=== PATIENT | female | born 1980 | race Caucasian/White ===

== ENCOUNTER 2025-05-25 14:52 | Outpatient (REF) | payer OTHER, SELFPAY ==
--- NOTE | ~2025-05-25 | XR_ITS ---
EXAMINATION: XR LUMBOSACRAL SPINE CLINICAL INFORMATION: M47.817 - Spondylosis without myelopathy or radiculopathy, lumbosacral r... COMPARISON: None available. TECHNIQUE: AP, oblique and lateral views. FINDINGS: Multilevel small marginal osteophyte formation and endplate sclerosis throughout the axial skeleton. Facet joint hypertrophy at L5-S1 and to a lesser extent L4-5. No acute cortical disruption or gross malalignment. No spondylolysis pars interarticularis on x-ray. XR/XR sacroiliac joint min 3V IMPRESSION: Multilevel spondylosis pronounced at L5-S1 and to a lesser extent L4-5 EXAMINATION: XR SACROILIAC JOINTS CLINICAL INFORMATION: M47.817 - Spondylosis without myelopathy or radiculopathy, lumbosacral r... COMPARISON: None available. TECHNIQUE: AP and oblique views of the sacroiliac joints FINDINGS: No acute cortical disruption. Sclerosis and the left sacroiliac joint. No lytic or blastic lesions. Probable spina bifida occulta S1. IMPRESSION: Left-sided sacroiliitis in the correct clinical settings. Electronically signed by: Akin Irizarry MD 05/26/2025 07:15 AM KENRICK
--- NOTE | ~2025-05-25 | XR_ITS ---
EXAMINATION: XR LUMBOSACRAL SPINE CLINICAL INFORMATION: M47.817 - Spondylosis without myelopathy or radiculopathy, lumbosacral r... COMPARISON: None available. TECHNIQUE: AP, oblique and lateral views. FINDINGS: Multilevel small marginal osteophyte formation and endplate sclerosis throughout the axial skeleton. Facet joint hypertrophy at L5-S1 and to a lesser extent L4-5. No acute cortical disruption or gross malalignment. No spondylolysis pars interarticularis on x-ray. XR/XR lumbar spine 4V min IMPRESSION: Multilevel spondylosis pronounced at L5-S1 and to a lesser extent L4-5 EXAMINATION: XR SACROILIAC JOINTS CLINICAL INFORMATION: M47.817 - Spondylosis without myelopathy or radiculopathy, lumbosacral r... COMPARISON: None available. TECHNIQUE: AP and oblique views of the sacroiliac joints FINDINGS: No acute cortical disruption. Sclerosis and the left sacroiliac joint. No lytic or blastic lesions. Probable spina bifida occulta S1. IMPRESSION: Left-sided sacroiliitis in the correct clinical settings. Electronically signed by: Akin Irizarry MD 05/26/2025 07:15 AM KENRICK
== END 2025-05-25 14:53 | disposition home or self-care (01) ==
LOC: HO.XRAY 14:52
PROVIDERS: PCP Nurse Practitioner; Visit Provider Nurse Practitioner Family
DX: M47.817 Spondylosis without myelopathy or radiculopathy, lumbosacral region (principal); M54.9 Dorsalgia, unspecified; G89.29 Other chronic pain; M53.3 Sacrococcygeal disorders, not elsewhere classified; E66.01 Morbid (severe) obesity due to excess calories; Z68.43 Body mass index [BMI] 50.0-59.9, adult; M79.7 Fibromyalgia
CPT/HCPCS: 72110; 72202; 99202

== ENCOUNTER 2025-05-25 14:52 | Outpatient (AMB) | payer OTHER, SELFPAY ==
--- OUTSIDE RECORDS SUMMARY | 2025-05-24 14:30 | XMS_ITS | Encounter Summary ---
Author Organization [facility] Address [address] [place] [address] Care Team Providers Care Web Content Coordinator Name Role Phone Janie Martines MD Primary Care Provider [phone] Reason for Referral * Consultation (Routine) - Pending Review Specialty Diagnoses / Procedures Referred By Contdon t Referred To Contact Nutrition / Internal Medicine Diagnoses BMI 45.0-49.9, adult (CMS/HCC V24, CMS/HCC V28) Prediabetes Shelia Peters NP [address] [address] Phone: tel: fax: Marisol Mckeon, RD [address] [place] [address] Phone: tel: fax: Referral ID Status Reason Start Date Expiration Date Visits Requested Visits Authorized [id number] Pending Review Specialty Services Required 5 05/24/2026 1 1 * Consultation (Routine) - Authorized Specialty Diagnoses / Procedures Referred By Contdon t Referred To Contact Family Nutrition Services / Bariatrics Diagnoses BMI 45.0-49.9, adult (CMS/HCC V24, CMS/HCC V28) Shelia Peters NP [address] [address] Phone: tel: fax: Bariatric Surgery - [place] 175 [facility] [address] [place] [address] Phone: tel: fax: Referral ID Status Reason Start Date Expiration Date Visits Requested Visits Authorized [id number] Authorized Specialty Services Required 5 05/24/2026 1 1 * Consultation (Routine) - Pending Review Specialty Diagnoses / Procedures Referred By Mindi golden Referred To Contact Dermatology Diagnoses Atypical mole Shelia Peters NP 175 [facility] [address] [place] [address] Phone: tel: fax: [facility] [address] [facility] [address] [place] [address] Phone: tel: fax: Referral ID Status Reason Start Date Expiration Date Visits Requested Visits Authorized [id number] Pending Review Specialty Services Required 5 05/24/2026 1 1 Reason for Visit * Reason Comments Back Pain Encounter Details Date Type Department Care Team ([facility] st Contact Info) Description 05/24/2025 2:30 PM EST Office Visit Internal Medicine - [place] 175 [facility] [address] [place] [phone] Shelia Peters NP 175 [facility] [address] [place] [address] Chronic bilateral low back pain with bilateral sciatica (Primary Dx); Muscle spasm; Chronic pain of right knee; Left hip pain; Prediabetes; BMI 45.0-49.9, adult (CMS/HCC V24, CMS/HCC V28); Moderate asthma, unspecified whether complicated, unspecified whether persistent; Atypical mole Social History Tobacco Use Types Packs/Day Years Used Date Smoking Tobacco: Former Cigarettes 0.3 Q uit: 06/10/2015 Smokeless Tobacco: Never Alcohol Use Standard Drinks/Week Comments Yes 0 (1 standard drink = 0.6 oz pur e alcohol) Food Access & Nutrition Answer Date Rec orded Do you have access to a vari ety of food including fruits and vegetables? Yes 01/05/2025 Access to Healthcare Answer Date Record ed Within the last 3 months, ho w many times did you visit the emergency department for your medical care? 0 01/05/2025 Health Literacy Answer Date Recorded How often do you need to hav e someone help you when you read instructions, pamphlets, or other written material from your doctor or pharmacy? Never 01/05/2025 Caregiver: How often do you need to have someone help you when you read instructions, pamphlets, or other written material from your doctor or pharmacy? Not on file 01/05/2025 Financial Risk Answer Date Recorded How hard is it for you to pa y for the very basics like food, housing, medical care, and air conditioning / heating? Patient declined 01/05/2025 Transportation Answer Date Recorded Has the lack of transportati on kept you from meetings, work, or from getting things needed for daily living? No Has the lack of transportati on kept you from medical appointments or from getting medications? No 01/05/2025 Social Isolation Answer Date Recorded How often do you feel lonely or isolated from th ose around you? Often 01/05/2025 Food Risk Answer Date Recorded Within the past 12 months we worried whether our food would run out before we got money to buy more. Never true 05/24/2025 Within the past 12 months th e food we bought just didn't last and we didn't have money to get more. Never true 05/24/2025 Dependent Care Answer Date Recorded Do you need help finding or paying for care for your loved ones. For example, child center assistant or elderly care for an older adult? No 01/05/2025 Education Answer Date Recorded Do you think completing more education or training, like finishing a GED, going to college, or learning a trade, would be helpful for you? No 01/05/2025 Employment and Income Answer Date Recor ded During the last four weeks, have you been actively looking for work? No 01/05/2025 Living Situation Answer Date Recorded What is your living situation? Unrecognized valu e 01/05/2025 Comments Unknown Sex and Gender Information Value Date Recorded Sex Assigned at Not on file Legal Sex Female 1:23 AM EST Gender Identity Female 04/19/2025 9:56 AM EST Sexual Orientation Bisexual 04/19/2025 9: 56 AM EST documented as of this encounter Last Filed Vital Signs Vital Sign Reading Time Taken Comments Blood Pressure 138/84 05/24/2025 2:12 PM EST Pulse 106 05/24/2025 2:12 PM EST Temperature 36.6 C (97.8 F) 05/24/2025 2:12 PM EST Respiratory Rate - - Oxygen Saturation 96% 05/24/2025 2:12 PM EST Inhaled Oxygen Concentration - - Weight 126 kg (278 lb 4.8 oz) 05/24/2025 2:12 PM EST Height 160 cm (5' 3 ) 05/24/2025 2:12 PM EST Body Mass Index 49.3 05/24/2025 2:12 PM EST documented in this encounter Ordered Prescriptions Prescription Sig Dispense Quantity Refills Last Filled Start Date End Date methylPREDNISolone (MEDROL DOSPAK) 4 mg tabletIndications: Chronic bilateral low back pain with bilateral sciatica Take as directed on package. 21 tablet 05/24/2025 5 cyclobenzaprine (FLEXERIL) 10 mg tabletIndications: Muscle spasm Take 1 tablet (10 mg total) by mouth at bedtime as needed for muscle spasms. 30 tablet 2 05/24/2025 6 documented in this encounter Progress Notes * Shelia Peters NP - 05/24/2025 2:30 PM EST CHIEF COMPLAINT: Back Pain IDENTIFIER: Gianna Tomas is a 44 y.o. old female. History of Present Illness Gianna is a 44-year-old female presenting with back pain, right knee tumor, left hip pain, weight gain, and prediabetes. 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 - Tried physical therapy - Upcoming pain management appointment - Gabapentin 800 mg TID provides some relief Right Knee Tumor - Pain for years - No follow-up since its discovery 1.5-2 years ago - Dislikes cortisone shots due to headaches - Found some relief from a gel injection - Seeks an x-ray to assess the tumor Left Hip Pain - Intense burning pain, especially before menstruation Weight Gain - Gained 5-6 pounds despite low food intake - Attributes weight gain to inactivity from pain - Considered weight loss surgery but declined due to anxiety - Exploring weight management options - Eats once a day Prediabetes - Concerned about developing diabetes - Open to consulting a successfactors consultant again Difficulty Breathing - Frequent wheezing - Regular use of inhaler and breathing machine Growing, Raised Lesion on Arm - Noticed over the past year - Concerns her 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 Sleep: Interrupted sleep due to leg cramps GYNECOLOGICAL HISTORY: Menstrual Pain: Intense burning pain in left hip before menstruation Answers submitted by the patient for this visit: Office Visit on 05/24/2025 2:30 PM with Cadence Peters NP Back Pain Questionnaire (Submitted on 05/23/2025) Chief Complaint: Back pain Chronicity: recurrent Onset: more than 1 year ago Frequency: constantly Progression since onset: waxing and waning Pain location: gluteal, lumbar spine, sacro-iliac Pain quality: aching, burning, shooting, stabbing Radiates to: left knee, left thigh, right foot, right knee, right thigh Pain - numeric: 8/10 Pain is: the same all the time Aggravated by: bending, coughing, position, lying down, sitting, standing, twisting Stiffness is present: all day abdominal pain: No bladder incontinence: No bowel incontinence: No chest pain: No fever: No headaches: Yes leg pain: Yes numbness: Yes perianal numbness: No dysuria: No paresthesias: Yes tingling: Yes weakness: Yes Risk factors: obesity ROS: See HPI. PAST MEDICAL HISTORY: Patient Active Problem List Diagnosis Date Noted Fibromyalgia 01/05/2025 Anxiety and depression 01/05/2025 Urinary incontinence 01/05/2025 Obstructive sleep apnea 01/05/2025 Allergic rhinitis 01/05/2025 Class 3 severe obesity due to excess calories without serious comorbidity with body mass index (BMI) of 45.0 to 49.9 in adult ([facility] V24, [facility] V28) 01/05/2025 Moderate asthma 01/05/2025 Surgical History[1] SOCIAL HISTORY: Social History Tobacco Use Smoking status: Former Current packs/day: 0.00 Average packs/day: 0.3 packs/day Types: Cigarettes Quit date: 06/10/2015 Years since quittin.9 Smokeless tobacco: Never Substance Use Topics Alcohol use: Yes FAMILY HISTORY: Family History[2] Family Status Relation Name Status Mother Alive Father Alive Sister Alive MGF (Not Specified) Other Alive Other (Not Specified) Other (Not Specified) No partnership data on file MEDICATIONS DISCONTINUED/REORDERED: There are no discontinued medications. ACTIVE MEDICATIONS: Medications Taking[3] ALLERGIES: Allergies[4] PHYSICAL EXAM: Visit Vitals BP 138/84 (BP Location: Right arm, Patient Position: Sitting, BP Cuff Size: Adult) Pulse 106 Temp 36.6 ??C (97.8 ??F) (Temporal) Ht 1.6 m (63 ) Wt 126 kg (278 lb 4.8 oz) SpO2 96% BMI 49.30 kg/m?? Smoking Status Former BSA 2.22 m?? Physical Exam Musculoskeletal: Tenderness and tightness in back muscles. Pain and numbness in legs. Pain in left hip. Skin: Raised lesion on arm. LABS/IMAGING: No visits with results within 6 Month(s) from this visit. Latest known visit with results is: Appointment on 10/08/2024 Component Date Value Ref Range Status TSH 10/08/2024 2.99 0.40 - 4.00 mcIU/mL Final Vit D, 25-Hydroxy 10/08/2024 31.6 30.0 - 80.0 ng/mL Final Vitamin B-12 10/08/2024 1,747 (H) 250 - 900 pcg/mL Final Hemoglobin A1C 10/08/2024 6.3 <6.5 % Final Mean Bld Glu Estim. 10/08/2024 134 mg/dL Final Sodium 10/08/2024 141 133 - 145 mmol/L Final Potassium 10/08/2024 3.4 (L) 3.5 - 5.5 mmol/L Final Chloride 10/08/2024 106 96 - 110 mmol/L Final CO2 10/08/2024 29 21 - 32 mmol/L Final Anion Gap 10/08/2024 6 3 - 11 Final Glucose 10/08/2024 101 (H) 70 - 100 mg/dL Final BUN 10/08/2024 14 5 - 25 mg/dL Final Creatinine 10/08/2024 0.78 0.50 - 1.10 mg/dL Final eGFR 10/08/2024 97 >=60 mL/min/1.73m2 Final BUN/Creatinine Ratio 10/08/2024 17.9 Final Calcium 10/08/2024 8.7 8.5 - 10.5 mg/dL Final AST (SGOT) 10/08/2024 35 10 - 42 unit/L Final ALT (SGPT) 10/08/2024 38 10 - 60 unit/L Final Alkaline Phosphatase 10/08/2024 87 42 - 121 unit/L Final Total Protein 10/08/2024 6.9 6.0 - 8.0 g/dL Final Albumin 10/08/2024 3.8 3.2 - 5.0 g/dL Final Total Bilirubin 10/08/2024 0.5 0.0 - 1.4 mg/dL Final Cholesterol 10/08/2024 142 0 - 200 mg/dL Final Triglycerides 10/08/2024 47 0 - 150 mg/dL Final HDL 10/08/2024 51 >=40 mg/dL Final LDL Calculated 10/08/2024 82 0 - 100 mg/dL Final VLDL Cholesterol Aniceto 10/08/2024 9.4 mg/dL Final Non HDL Chol. (LDL+VLDL) 10/08/2024 91 <145 mg/dL Final Chol/HDL Ratio 10/08/2024 2.8 0.0 - 4.4 Final IMPRESSION: 1. Chronic bilateral low back pain with bilateral sciatica 2. Muscle spasm 3. Chronic pain of right knee 4. Left hip pain 5. Prediabetes 6. BMI 45.0-49.9, adult ([facility]/HCC V24, [facility] V28) 7. Moderate asthma, unspecified whether complicated, unspecified whether persistent 8. Atypical mole PLAN: 1. Chronic bilateral low back pain with bilateral sciatica methylPREDNISolone (MEDROL DOSPAK) 4 mg tablet 2. Muscle spasm cyclobenzaprine (FLEXERIL) 10 mg tablet 3. Chronic pain of right knee XR Knee 4+ Views Right 4. Left hip pain XR Hip 2-3 Views Left 5. Prediabetes Ambulatory referral to Nutrition Services 6. BMI 45.0-49.9, adult ([facility] V24, [facility] V28) Ambulatory referral to Weight Management Ambulatory referral to Nutrition Services 7. Moderate asthma, unspecified whether complicated, unspecified whether persistent 8. Atypical mole Ambulatory referral to Dermatology Assessment & Plan 1. Low back pain with sciatica, muscle spasms - Prescribed Flexeril at bedtime and Medrol Dosepak. - Will consider referral to landscape specialist if symptoms persist. 2. Right knee tumor - Ordered x-ray to monitor tumor size. 3. Left hip pain - Ordered x-ray. 4. BMI 49.3 Weight gain due to inactivity and pain. - Referred to weight management. - Advised to prioritize protein intake (60-90 g/day), limit sugar and carbohydrates. 5. Prediabetes - Referred to successfactors consultant. - Advised to limit sugar and carbohydrates, prioritize protein. 6. Moderate asthma Difficulty breathing and frequent wheezing. - Weight loss could improve breathing. 7. Lesion on arm - Referred to dermatology for evaluation and potential biopsy. Recommend follow-up in 6 months for physical examination. Advised the patient to call me if any problems. Patient understands the plan. Patient is in agreement with the plan. I have obtained verbal consent from Gianna Tomas prior to the recording. I have advised Gianna Tomas that she may refuse the recording and require the recording to be turned off at any time during this encounter. Shelia Peters NP on 05/24/2025 at 4:46 PM EST [1] Past Surgical History: Procedure Laterality Date CARPAL TUNNEL RELEASE Bilateral 02/2022 PROCEDURE: HISTORICAL CARPAL TUNNEL REL ESOPHAGOGASTRODUODENOSCOPY 04/23/2007 PROCEDURE: SD EGD TRANSORAL BIOPSY SINGLE/MULTIPLE; COMMENT: Antral gastritis- bx:Chronic gastritis,mild/mod activity, H. pylori+. [2] Family History Problem Relation Name Age of Onset Mental illness Mother also drug abuse Arthritis Father Other cancer Maternal Grandfather unknown type Ovarian cancer Other unknown Colon cancer Other unknown [3] Outpatient Medications Marked as Taking for the 05/24/25 encounter (Office Visit) with Shelia Peters NP Medication Sig Dispense Refill acetaminophen (TYLENOL) 500 mg tablet Take 1 tablet (500 mg total) by mouth every 6 (six) hours if needed for mild pain, moderate pain, headaches or fever - temperature GREATER than 38 C (100.4 F). 90 tablet 11 albuterol HFA (PROAIR HFA ; PROVENTIL HFA ; VENTOLIN HFA) 90 mcg/actuation inhaler Inhale 2 puffs by mouth every 4 (four) hours if needed for wheezing. 18 each 3 FLUoxetine (PROzac) 60 mg tablet TAKE 1 TABLET BY MOUTH EVERY DAY 30 tablet 5 fluticasone furoate (Arnuity Ellipta) 100 mcg/actuation blister with device inhaler Inhale 1 puff by mouth 1 (one) time each day. 1 each 12 fluticasone propionate (FLONASE) 50 mcg/actuation nasal spray SPRAY 2 SPRAYS INTO EACH NOSTRIL EVERY DAY 48 mL 1 gabapentin (NEURONTIN) 800 mg tablet Take 1 tablet (800 mg total) by mouth 3 (three) times a day ifneeded (pain). 120 tablet 5 hydrOXYzine HCL (ATARAX) 25 mg tablet TAKE 1 TABLET BY MOUTH THREE TIMES A DAY NEEDED FOR ANXIETY 30 tablet 2 oxyBUTYnin (DITROPAN) 5 mg tablet Take 1 tablet (5 mg total) by mouth 2 (two) times a day. 60 each 11 pregabalin (LYRICA) 100 mg capsule TAKE 1 CAPSULE (100 MG TOTAL) BY MOUTH 3 TIMES A DAY MAX DAILY AMOUNT: 300 MG 90 capsule 1 SUMAtriptan (IMITREX) 50 mg tablet TAKE 1 TABLET BY MOUTH ONE TIME IF NEEDED FOR MIGRAINE FOR UP TO1 DOSE 12 tablet 1 traZODone (DESYREL) 50 mg tablet TAKE 1 TABLET BY MOUTH EVERYDAY AT BEDTIME 90 tablet 1 [4] No Known Allergies documented in this encounter Plan of Treatment Upcoming Encounters Date Type Department Care Team (Late st Contact Info) Description 07/13/2025 1:30 PM EST Office Visit Urogynecology - [address] [phone] Mitra Yun MD [address] [place] [address] [address] [place] [address] Scheduled Referrals Name Type Priority Associated Diagnoses Order Schedule Ambulatory referral to Dermatology Outpatient Referral Routine Atypical mole 1 Occurrences starting 05/24/2025 until 05/24/2026 Ambulatory referral to Weight Management Outpatient Referral Routine BMI 45.0-49.9, adult ([facility] V24, [facility] V28) 1 Occurrences starting 05/24/2025 until 05/24/2026 Ambulatory referral to Nutrition Services Outpatient Referral Routine BMI 45.0-49.9, adult ([facility] V24, [facility] V28) Prediabetes 1 Occurrences starting 05/24/2025 until 05/24/2026 documented as of this encounter Results * XR Hip 2-3 Views Left (05/24/2025 3:15 PM EST) Anatomical Region Laterality Modality Lower Extremities, Hip Left Radiograp hic Imaging 05/24/2025 3:24 PM EST Impressions 05/24/2025 3:25 PM EST No acute findings. -------- FINAL REPORT -------- Dictated By: Kurtis Castillo Dictated Date: 05/24/2025 15:24 ET Assigned Physician: Kurtis Castillo Reviewed and Electronically Signed By: Kurtis Castillo Signed Date: 05/24/2025 15:25 ET Workstation ID: [id number] Transcribed By: Self Edit Transcribed Date: 05/24/2025 15:24 ET Narrative 05/24/2025 3:25 PM EST PROCEDURE: Radiographs of the left hip. HISTORY: JOINT PAIN, HIP. COMPARISON: None. FINDINGS: AP view of the pelvis and 2 views of the left hip. Minimal degenerative changes of the visualized lumbar spine. Mild irregularity of the pubic symphysis. No fracture, malalignment, erosion, or bony lesion. Procedure Note Kurtis Castillo MD - 05/24/2025 PROCEDURE: Radiographs of the left hip. HISTORY: JOINT PAIN, HIP. COMPARISON: None. FINDINGS: AP view of the pelvis and 2 views of the left hip. Minimal degenerative changes of the visualized lumbar spine. Mildirregularity of the pubic symphysis. No fracture, malalignment, erosion,or bony lesion. IMPRESSION: No acute findings. 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 No acute findings. -------- FINAL REPORT -------- Dictated By: Kurtis Castillo Dictated Date: 05/24/2025 15:23 ET Assigned Physician: Kurtis Castillo Reviewed and Electronically Signed By: Kurtis Castillo Signed Date: 05/24/2025 15:26 ET Workstation ID: [id number] Transcribed By: Self Edit Transcribed Date: 05/24/2025 15:24 ET Narrative 05/24/2025 3:26 PM EST PROCEDURE: Radiographs of the right knee. HISTORY: Knee pain, neg xray or effusion only. COMPARISON: None. FINDINGS: 5 views of the right knee. Small tricompartmental osteophytes. No joint effusion. No fracture, malalignment, erosion, or bony lesion. Procedure Note Kurtis Castillo MD - 05/24/2025 PROCEDURE: Radiographs of the right knee. HISTORY: Knee pain, neg xray or effusion only. COMPARISON: None. FINDINGS: 5 views of the right knee. Small tricompartmental osteophytes. No joint effusion. No fracture,malalignment, erosion, or bony lesion. IMPRESSION: Mild degenerative changes. No acute findings. -------- FINAL REPORT -------- Dictated By: Kurtis Castillo Dictated Date: 05/24/2025 15:23 ET Assigned Physician: Kurtis Castillo Reviewed and Electronically Signed By: Kurtis Castillo Signed Date: 05/24/2025 15:26 ET Workstation ID: [id number] Transcribed By: Self Edit Transcribed Date: 05/24/2025 15:24 ET Shelia Peters [employer]ER TENDER IMG XR PROCEDURES Final Result documented in this encounter Visit Diagnoses Diagnosis Chronic bilateral low back pain with bilateral sciatica- Primary Muscle spasm Spasm of muscle Chronic pain of right knee Left hip pain Pain in joint, pelvic region and thigh Prediabetes Other abnormal glucose BMI 45.0-49.9, adult (CMS/HCC V24, CMS/HCC V28) Moderate asthma, unspecified whether complicated, unspecified whether persistent Atypical mole Left hip pain Pain in joint, pelvic region and thigh Chronic pain of right knee documented in this encounter Additional Health Concerns Assessment Noted Time PHQ-9 Depression Total Score: 0 01/06/20 25 1:20 PM EDT documented as of this encounter Care Teams Web Content Coordinator Relationship Specialty Start Date End Date Janie Martines MD [address] [place] [phone] PCP - General 01/22/24 documented as of this encounter
--- OUTSIDE RECORDS SUMMARY | 2025-05-24 14:54 | XMS_ITS | Encounter Summary ---
Author Organization [facility] Address [address] [place] [address] Care Team Providers Care Reservations Sales Agent Name Role Phone Janie Martines MD Primary Care Provider [phone] Encounter Details Date Type Department Care Team (Latest Contact Info) Description 05/24/2025 2:54 PM EST - 05/24/2025 11:59 PM [facility] Hospital Encounter [facility] Xray [address] [place] [id number] Left hip pain Discharge Disposition: Home or Self Care Social History Tobacco Use Types Packs/Day Years [...] for your loved ones. For example, child care associate teacher or elderly care for an older adult? [...] AM EST documented as of this encounter Medications at Time of Discharge acetaminophen (TYLENOL) 500 mg tablet Take 1 tablet (500 mg total) by mouth every 6 (six) hours if needed for mild pain, moderate pain, headaches or fever - temperature GREATER than 38 C (100.4 F). 90 tablet 11 01/05/2025 albuterol HFA (PROAIR HFA ; PROVENTIL HFA ; VENTOLIN HFA) 90 mcg/actuation inhaler Inhale 2 puffs by mouth every 4 (four) hours if needed for wheezing. 18 each 3 04/05/2025 cyclobenzaprine (FLEXERIL) 10 mg tabletIndications :Muscle spasm Take 1 tablet (10 mg total) by mouth at bedtime as needed for muscle spasms. 30 tablet 2 05/24/2025 6 FLUoxetine (PROzac) 60 mg tablet TAKE 1 TABLET BY MOUTH EVERY DAY 30 tablet 5 04/15/2025 fluticasone furoate (Arnuity Ellipta) 100 mcg/actuation blister with device inhaler Inhale 1 puff by mouth 1 (one) time each day. 1 each 01/05/2025 6 fluticasone propionate (FLONASE) 50 mcg/actuation nasal spray SPRAY 2 SPRAYS INTO EACH NOSTRIL EVERY DAY 48 mL 1 12/23/2024 gabapentin (NEURONTIN) 800 mg tabletIndications :Low back pain, unspecified back pain laterality, unspecified chronicity, unspecified whether sciatica present Take 1 tablet (800 mg total) by mouth 3 (three) times a day if needed (pain). 120 tablet 5 04/05/2025 hydrOXYzine HCL (ATARAX) 25 mg tablet TAKE 1 TABLET BY MOUTH THREE TIMES A DAY NEEDED FOR ANXIETY 30 tablet 2 04/12/2025 methylPREDNISolon e (MEDROL DOSPAK) 4 mg tabletIndications :Chronic bilateral low back pain with bilateral sciatica Take as directed on package. 21 tablet 05/24/2025 5 oxyBUTYnin (DITROPAN) 5 mg tabletIndications :Overactive bladder Take 1 tablet (5 mg total) by mouth 2 (two) times a day. 60 each 10/01/2024 6 pregabalin (LYRICA) 100 mg capsuleIndication s:Low back pain, unspecified back pain laterality, unspecified chronicity, unspecified whether sciatica present TAKE 1 CAPSULE (100 MG TOTAL) BY MOUTH 3 TIMES A DAY MAX DAILY AMOUNT: 300 MG 90 capsule 1 04/20/2025 SUMAtriptan (IMITREX) 50 mg tabletIndications :Other migraine with status migrainosus, intractable TAKE 1 TABLET BY MOUTH ONE TIME IF NEEDED FOR MIGRAINE FOR UP TO 1 DOSE 12 tablet 1 05/12/2025 traZODone (DESYREL) 50 mg tabletIndications :Insomnia, unspecified type TAKE 1 TABLET BY MOUTH EVERYDAY AT BEDTIME 90 tablet 1 02/25/2025 documented as of this encounter Discharge Disposition Disposition Code Departure Means Destination Home or Self Care documented in this encounter Plan of Treatment Upcoming Encounters Date Type Department Care Team (Late st Contact Info) Description 07/13/2025 1:30 PM EST Office Visit Urogynecology - [place] [address] [place] [place] [address] Mitra Yun MD [address] [facility] [address] [place] [address] documented as of this encounter Procedures Procedure Name Priority Date/Time Associated Diagnosis Comments XR HIP 2-3 VIEWS LEFT Routine 05/24/2025 3:15 PM EST Left hip pain documented in this encounter Results * XR Hip 2-3 [...] Signed Date: 05/24/2025 15:25 ET Workstation ID: [id number] Transcribed By: Self Edit Transcribed Date: 05/24/2025 [...] Signed Date: 05/24/2025 15:25 ET Workstation ID: [id number] Transcribed By: Self Edit Transcribed Date: 05/24/2025 15:24 ET Marinayony Peters [facility] IMG XR PROCEDURES Final Result documented in this encounter Visit Diagnoses Diagnosis Left hip pain Pain in joint, pelvic region and thigh documented in this encounter Additional Health Concerns Assessment Noted Time PHQ-9 Depression Total Score: 0 01/06/20 25 1:20 PM EDT documented as of this encounter Care Teams Reservations Sales Agent Relationship Specialty Start Date End Date Janie Martines MD [address] [place] [phone] PCP - General 01/22/24 documented as of this encounter
--- OUTSIDE RECORDS SUMMARY | 2025-05-24 15:03 | XMS_ITS | Encounter Summary ---
Author Organization [facility] Address [address] [place] [address] Care Team Providers Care Press Operator Apprentice Name Role Phone Janie Martines MD Primary Care Provider [phone] Encounter Details Date Type Department Care Team (Latest Contact Info) Description 05/24/2025 3:03 PM EST - 05/24/2025 11:59 PM [facility] En[facility] Xray [address] [place] [address] Chronic pain of right knee Discharge Disposition: Home or Self Care Social [...] care for your loved ones. For example, director maternal child or elderly care for an older adult? [...] 1:30 PM EST Office Visit Urogynecology - [place] [address] [place] [address] Mitra Yun MD [address] [place] [address] [address] [place] [address] documented as of this encounter Procedures Procedure Name Priority Date/Time Associated Diagnosis Comments XR KNEE 4+ VIEWS RIGHT Routine 05/24/2025 3:15 PM EST Chronic pain of right knee documented in this encounter Results * XR Knee 4+ Views Right (05/24/2025 3:15 PM EST) Anatomical Region Laterality Modality Lower Extremities, Knee Right [facility] 05/24/2025 3:23 PM EST Impressions 05/24/2025 3:26 PM EST Mild degenerative changes. No acute findings. -------- FINAL REPORT -------- Dictated By: Kurtis Castillo Dictated Date: 05/24/2025 15:23 ET Assigned Physician: uKrtis Castillo Reviewed and Electronically Signed By: Kurtis Castillo Signed Date: 05/24/2025 15:26 ET Workstation ID: [id number] Transcribed By: Self Edit Transcribed Date: 05/24/2025 [...] Signed Date: 05/24/2025 15:26 ET Workstation ID: [id number] Transcribed By: Self Edit Transcribed Date: 05/24/2025 15:24 ET Shelia Peters NP IMG XR PROCEDURES Final Result documented in this encounter Visit Diagnoses Diagnosis Chronic pain of right knee documented in this encounter Additional Health Concerns Assessment Noted Time PHQ-9 Depression Total Score: 0 01/06/20 25 1:20 PM EDT documented as of this encounter Care Teams Press Operator Apprentice Relationship Specialty Start Date End Date Janie Martines MD [address] [place] [phone] PCP - General 01/22/24 documented as of this encounter
--- NOTE | 2025-05-25 15:00 | MHC.OFFVIS ---
Vital Signs 05/25/25 15:06 Height 5 ft 3 in Weight 285 lb 4 oz BMI 50.5 BP 174/87 H Blood Pressure Location Rt brachial Position Sitting Pulse 88 Pulse Source Pulse Oximeter Pulse Oximetry (%) 99 Oxygen Delivery Method Room Air Intake Visit Reasons: Fibromyalgia Intake Note: Pain today 8/10 [employer] Spray Unit Feeder Required: No Accompanied by: Self / Same As Patient Allergies No Known Drug Allergies Allergy (Unknown, Unverified 02/25/20 16:43) UNKNOWN HPI Comments Details: The patient is a 44 year old female presenting for evaluation of fibromyalgia and widespread chronic pain. She reports a lifelong history of pain, which has been constantly intense for the past 5 years since a diagnosis of Lyme disease. The pain is rated 9/10, affects her sleep, and is exacerbated by weather changes and movements. She describes shooting pains down the back of her legs for the last year and a half, which can be triggered by standing up after bending over. She also reports left-sided back pain, left buttock pain, and pain in her hands, feet, and hips. The patient notes that her whole body can swell, which she feels worsens her pain, and this is exacerbated before or during her menstrual period. She also experiences a widespread burning, stinging, and numbing sensation to light touch. Past interventions for back pain include cortisone injections more than 5 years ago [address] [facility], which she reports caused severe headaches. She has tried physical therapy and gel injection for her knee about a year ago and manager managed care, neither of which she found helpful, but notes that massage therapy provides relief. She is interested in trying acupuncture. 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 She has also been diagnosed with sleep apnea, for which she is non-compliant with CPAP, and experiences depression and anxiety. Additionally, she has migraine headaches managed with sumatriptan and NSAID. The patient is in a Suboxone program for a history of opioid dependence which she reports she developed after surgical procedure. Recent workup includes a hip x-ray yesterday showing mild degenerative changes. Denies recent lumbar spine imaging. 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 She also reports chronic fatigue. Pain Description - Onset and Duration: The patient reports a lifelong history of pain that became constant and intensely severe approximately 5 years ago after a Lyme disease diagnosis. - Location: The pain is described as widespread and diffuse, specifically affecting her hands, feet, hips, and low back, with left-sided predominance. - Radiation: She experiences shooting pains that travel down the back of her legs. - Quality: The pain is described as a shooting jolt in her legs, while other areas have a numbing, burning, and stinging sensation to light touch. - Severity: The pain is rated a 9 out of 10. - Exacerbating Factors: Pain is worsened by movement, weather changes, standing for long periods, and the perimenstrual period. - Relieving Factors: Massage and using a hot tub provide some relief. - Associated Symptoms: The patient reports chronic fatigue, body swelling, and difficulty sleeping due to pain. Pain Management - Analgesia: The patient is currently taking gabapentin, Lyrica, and ibuprofen for pain. - Pain Level: Current pain is rated at 9/10. 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 - Function: Pain significantly interferes with her ability to sleep. - Affect: The patient reports depression and anxiety and expresses feelings of hopelessness, stating she is at a point where she feels like giving up. - Adverse Effects: Past cortisone injections caused bad headaches. - Aberrant Drug-Related Behaviors: The patient is in a Suboxone program for a history of prescription painkiller use. [facility] Medical History (Updated 05/25/25 @ 16:34 by TREVIN Leon) Fibromyalgia Asthma Severe anxiety Sleep apnea Opioid dependence in remission Anxiety and depression Lumbago Marijuana use Tobacco abuse Headache Migraine RADHA (obstructive sleep apnea) COVID-19 Pulmonary embolism Insomnia Hx of Lyme disease Surgical History (Updated 07/18/22 @ 07:07 by Jesus Washington MD) History of esophagogastroduodenoscopy (EGD) H/O hernia repair Family History (Updated 06/25/22 @ 12:53 by Antoine Hopkins LPN) Mother Mental disorder Drug abuse Father Arthritis Maternal Grandfather Cancer Review of Systems Narrative - General: Reports chronic fatigue and weakness. - Musculoskeletal: Reports widespread, constant body pain in hands, feet, hips, and low back. - Neurological: Reports shooting, jolting pains and a sensation of numbing, burning, and stinging to touch down her legs. - Neurological: Reports a history of migraine headaches. - Integumentary/Allergic: Reports her body swells, especially lower extremities. - Psychiatric: Reports depression and anxiety. - Endocrine: Reports pain and swelling worsen before her menstrual period. Const All systems reviewed & are unremarkable except as noted in HPI and below Physical Exam Vital Signs: Last Vital Signs Pulse 88 05/25/25 15:06 BP 174/87 H 05/25/25 15:06 Pulse Ox 99 05/25/25 15:06 Oxygen Delivery Method Room Air 05/25/25 15:06 BMI result Body Mass Index 50.5 General: Appears afebrile. Alert and oriented. Mood and affect appropriate. Follows and participates in conversation appropriately. Respiratory effort is unlabored. No cough. Able to transition from sit to stand unassisted. Ambulates with bilaterally normal heel strike and toe off. Multiple widespread TTPs bilaterally, including upper and lower extremities.?? General: Yes no CVA tenderness Back/Spine/Pelvis Other: Limited lumbar ROM due to pain. Lumbar flexion and extension reproduces moderate pain. No midline TTP in cervical, thoracic or lumbar regions. Demonstrates 5/5 strength of quadriceps bilaterally as well as flexion/dorsiflexion of bilateral feet against resistance. 2+ pedal pulses bilaterally. Straight leg rise with dorsiflexion negative bilaterally. +2 patellar and achilles reflexes bilaterally. Facet loading test positive bilaterally. Majo sign, Wood?s, Gaenslen, Pelvic compression and Stinchfield tests are positive on the left. No groin pain with I/E hip rotations bilaterally. Valsalva maneuver negative. Back: no CVA tenderness Cervical Spine: cervical ROM normal, cervical muscular tenderness, pain with cervical ROM, No Cervical spine scars present and No Cervical spine tenderness Thoracic/Lumbar Spine: thoracic and lumbar spine normal to inspection, No Thoracic/lumbar spine scar(s), Lasegue's sign negative, straight leg raise negative bilaterally, pain with thoraco-lumbar ROM, paraspinal muscle tenderness, thoraco-lumbar ROM limited, No thoracic spinal tenderness and No lumbar spinal tenderness Sacroiliac joints: bilaterally (L>R) Extrem General: Yes capillary refill normal, Yes no calf tenderness, No clubbing, No cyanosis and Yes edema (BLE +1) Assessment & Plan Assessment & Plan (1) Lumbosacral spondylosis: Code(s): M47.817 - Spondylosis without myelopathy or radiculopathy, lumbosacral region Category: Medical (2) Chronic back pain: Code(s): M54.9 - Dorsalgia, unspecified; G89.29 - Other chronic pain Category: Medical (3) Sacroiliac joint pain: Code(s): M53.3 - Sacrococcygeal disorders, not elsewhere classified Category: Medical (4) Lumbosacral spondylosis: Code(s): M47.817 - Spondylosis without myelopathy or radiculopathy, lumbosacral region Category: Medical (5) Chronic back pain: Code(s): M54.9 - Dorsalgia, unspecified; G89.29 - Other chronic pain Category: Medical (6) Morbid obesity with BMI of 50.0-59.9, adult: Code(s): E66.01 - Morbid (severe) obesity due to excess calories; Z68.43 - Body mass index [BMI] 50.0-59.9, adult Category: Medical (7) Fibromyalgia: Code(s): M79.7 - Fibromyalgia Category: Medical Plan For the patient's low back pain and radicular symptoms, we will start with updated imaging. An order will be placed for lumbosacral spine x-rays. A referral will be sent for physical therapy for a few sessions at a convenient location for the patient. If the patient experiences no improvement or has increased pain with physical therapy, the next step will be to obtain an MRI of her lumbar spine, after which she will follow up here to discuss potential interventional treatments. Regarding her bilateral lower extremity edema, the patient was counseled on conservative measures including elevating her feet, using compression stockings, and monitoring her sodium intake. She was advised to follow up with her PCP if the swelling worsens to rule out cardiac or renal etiologies. For management of her fibromyalgia and chronic pain, a discussion was held regarding pain coping strategies and lifestyle modifications. Strongly recommended daily physical activity, adequate hydration, well balanced diet, cognitive behavioral therapy to help with pacing activities and managing pain flare-ups. She was provided with information CBT-based mobile application as an alternative support tool. We also briefly discussed an anti-inflammatory diet, including the reduction of sugar and sweets. All questions and concerns have been answered and patient agreed with the treatment plan. Follow up for xray results/after PT and sooner as needed. Patient was informed and verbally consented to the use of an ambient scribe for clinic note documentation during this visit. Orders: Orders PT Evaluation and Treatment Today G89.29 - Other chronic pain, M47.817 - Spondylosis without myelopathy or radiculopathy, lumbosacral region, M53.3 - Sacrococcygeal disorders, not elsewhere classified, M54.16 - Radiculopathy, lumbar region, M54.9 - Dorsalgia, unspecified XR lumbar spine 4V min Today G89.29 - Other chronic pain, M47.817 - Spondylosis without myelopathy or radiculopathy, lumbosacral region, M54.9 - Dorsalgia, unspecified XR sacroiliac joint min 3V Today G89.29 - Other chronic pain, M47.817 - Spondylosis without myelopathy or radiculopathy, lumbosacral region, M53.3 - Sacrococcygeal disorders, not elsewhere classified, M54.9 - Dorsalgia, unspecified Coding Level of Care Code New Pt Level 4 (71783) Diagnoses Lumbosacral spondylosis M47.817 Chronic back pain M54.9; G89.29 Sacroiliac joint pain M53.3 Morbid obesity with BMI of 50.0-59.9, adult E66.01; Z68.43 Fibromyalgia M79.7
[2025-05-25 15:06] VITALS: BP 174/87; PULSE 88; O2SAT 99; BMI 50.5
--- OUTSIDE RECORDS SUMMARY | 2025-05-25 19:14 | XMS_ITS | Continuity of Care Document ---
Author Name [facility] Address [address] [place] [address] Organization Unknown Address [address] [place] [address] Medications No known medications Problems No known problems
--- OUTSIDE RECORDS SUMMARY | 2025-05-25 19:14 | XMS_ITS | Clinical Summary ---
Author Organization [facility] [employer] [facility] Prior to 11/07/[address] [place] [address] Care Team Providers Care Rubber Off Name Role Phone Lila Newberry MD Primary Care Provider Allergies No known active allergies Medications Medication Sig Dispensed Refills Start Date End Date Status cyclobenzaprine (FLEXERIL) 5 MG tablet Take 5 mg by mouth 3 (three) times a day as needed for muscle spasms. 0 Active gabapentin (NEURONTIN) 800 MG tablet Take 800 mg by mouth 4 (four) times a day. 0 Active apixaban (ELIQUIS) 5 MG TABS tablet Take 5 mg by mouth every 12 (twelve) hours. 0 Active FLUoxetine (PROzac) 40 MG capsule Take 40 mg by mouth daily. 0 Active SUMAtriptan (IMITREX) 50 MG tablet Take 50 mg by mouth every 2 (two) hours as needed for migraine. 0 Active pregabalin (LYRICA) capsule 100 mg Take 100 mg by mouth 3 (three) times a day. 0 Active traZODone (DESYREL) 50 MG tablet Take 50 mg by mouth every night at bedtime. 0 Active albuterol (PROVENTIL) (2.5 MG/3ML) 0.083% nebulizer solution Take 2.5 mg by nebulization every 4 (four) hours as needed for wheezing. 0 Active predniSONE (DELTASONE) tablet 20 mg Take 20 mg by mouth daily. 0 Active albuterol (PROVENTIL HFA;VENTOLIN HFA) 108 (90 Base) MCG/ACT inhaler Inhale 2 puffs into the lungs every 4 (four) hours as needed for wheezing. 0 Active ondansetron (Zofran) 4 MG tablet Take 4 mg by mouth every 8 (eight) hours as needed for nausea. 0 Active hydrOXYzine (VISTARIL) 25 MG capsule Take 25 mg by mouth 3 (three) times a day as needed for itching. 0 Active fluticasone (FLONASE) 50 MCG/ACT nasal spray spray/apply 2 sprays in each nostril daily. 0 Active buprenorphine HCl-naloxone HCl 8-2 mg (Suboxone) sublingual film Place 1 each under the tongue daily. 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 Date 05/23/2018. SE 96 % SM 100 %; spent 12 % of the study in REM. On CPAP @ 16; RDI 0.8 (AHI 0.8), Central apneas 1; Obstructive apneas 0; Mixed apneas 0; hypopneas 0; RERAs 0; and, average oxygen saturation was 93%. For the entire study, PLMs ~1. - Obstructive Sleep Apnea - mild; mostly hypopneas; without sleep related hypoventilation by 2018 home polysomnogram. Opiate dependence 07/04/2017 Overview: Overview: Suboxone program -- [place] Headache 08/15/2016 Migraine headache 08/15/2016 Asthma 10/10/2005 Low back pain 10/10/2005 Family History Medical History Relation Name Comments Arthritis Father Cancer Maternal Grandfather Drug abuse Mother Mental illness Mother Relation Name Status Comments Father Maternal Grandfather Mother Alive Social History Tobacco Use Types Packs/Day Years Used Date Smoking Tobacco: Every Day Smokeless Tobacco: Never Alcohol Use Standard Drinks/Week Comments No 0 (1 standard drink = 0.6 oz pur e alcohol) Sex and Gender Information Value Date Recorded Sex Assigned at Not on file Gender Identity Not on file Sexual Orientation Not on file Job Start Date Occupation Industry Not on file Not on file Not on file Last Filed Vital Signs Vital Sign Reading Time Taken Comments Blood Pressure 139/89 09/19/2020 10:48 AM EDT Pulse 89 09/19/2020 10:48 AM EDT Temperature 36.7 C (98.1 F) 09/19/2020 10:48 AM EDT Respiratory Rate - - Oxygen Saturation 97% 09/19/2020 10: 48 AM EDT Inhaled Oxygen Concentration - - Weight 113.1 kg (249 lb 6.4 oz) 021 10:48 AM EDT Height 160 cm (5' 3 ) 09/19/2020 10:48 AM EDT Body Mass Index 44.18 09/19/2020 10:48 AM EDT Plan of Treatment Health Maintenance Due Date Last Done Comments Hepatitis B Vaccines (1 of 3 - 3-dose series) 1981 Hepatitis C Screening 1981 COVID-19 Vaccine (#1) 01/13/1982 Depression Screening 1993 Preventative Health Evaluation 1999 Cervical Cancer Screening (Pap Smear) 2002 Pneumococcal Vaccine (2 of 2 - PCV) 03/23/2017 03/23/2016 Influenza Vaccine (#1) 2025 0, 05/29/2019, 03/28/2018, Additional history exists DTap / Tdap / Td (3 - Td or Tdap) 09/16/2025 09/17/2015, 03/20/2011 RSV Ped < 20 months Aged Out No longe r eligible based on patient's age to complete this topic Care Teams Rubber Off Relationship Specialty Start Date End Date Lila Newberry MD PCP - General Internal Medicine 08/18/20
--- OUTSIDE RECORDS SUMMARY | 2025-05-25 19:14 | XMS_ITS | Continuity of Care Document ---
Author Organization [employer] [facility], [facility] Address [address] [place] [address] Care Team Providers Care Automatic Transmission Mechanic Name Role Phone HIM [facility] OTHER [facility] Primary Care Provi dany Assessment Encounter Date Assessment Date Assessment LastModified by Organization Details LastModified Time 04/23/2025 04/23/2025 Impression: This is a 44-year-old female with a long history of chronic pain including bilateral knee pain, chronic low back pain, who calls today for low back pain symptoms. Patient follows with primary care, and is on Lyrica and gabapentin. She has seen pain management in the past remotely. Currently managed primarily by her primary care doctor. She states approximately week ago she had a tweak of her back. No fall or trauma by history. However since that time has had an exacerbation of her low back pain. Points to her bilateral lower back with some radiation down the buttocks and bilateral legs. She does have a numbness and tingling sensation at times. There is no associated weakness. No associated bowel or bladder incontinence. No fevers. No associated abdominal pain vomiting or diarrhea. No associated chest pain or shortness of breath or pleurisy. Denies other review of systems. On medic exam she is awake and alert and well-appearing in no distress. A and O x 3, GCS 15. She is able to ambulate independently without ataxia. She is neurologically intact, has normal strength and sensation in lower extremities. There is no overlying external signs of trauma, no redness swelling warmth over the back. There is no focal midline deformities. Abdomen soft and nontender. The rest of her exam is unremarkable and she denies other review of systems. Plan: On medic exam today patient is awake, alert, neurologically intact. She is hypertensive in the setting of pain but she has no associated neurologic deficits, no fevers, no bowel or bladder incontinence, no other red flags for back pain symptoms. She is not anticoagulated. Impression is that this is a recurrence of her acute on chronic back pain for which she suffered for a lengthy period, she will need continued evaluation by her primary care doctor and she would likely benefit from referral to pain management physical therapy. Today she is interested in a dose of IM Toradol which I believe is reasonable. No NSAIDs today, she is not anticoagulated. I believe is reasonable for patient to continue to observe her symptoms at home, follow-up with primary care in the next 1 to 2 days for recheck, and seek care immediately with any acute worsening or changing symptoms which she understands. I have a lower clinical suspicion at this time for an occult emergency medical condition such as epidural abscess or hematoma, cauda equina, osteomyelitis, cord compression. Discharged from visit with mandatory time to follow-up and strict return precautions reviewed. Primary care, consider 48-hour follow-up, pain management referral Disposition: We discussed the diagnostic uncertainty of home visits and the risk associated with this. In this case, the patient and I felt this to be an acceptable and reasonable amount of risk given the benefit of avoiding an ED visit. We discussed the need to seek care urgently/emergent ly in the setting of any new or worsening serious symptoms [id number] Not available 04/23/2025 13:54:02 Plan of Treatment Reminders Order Date Submit Date Provider Last Modified By Organization Details Last Modified Time Details Appointments None recorded. Lab None recorded. Referral None recorded. Procedures None recorded. Surgeries None recorded. Imaging None recorded. Medication Orders ketorolac 30 mg/mL injection solution 2024 025 rsullivan 89 [id number], [address] [facility], [place], [address], 13:47:33 Patient TargetsNo targets recorded. Patient InstructionsNo instructions recorded. Reason for Referral None Reported. Medical Equipment None Reported. Allergies No known drug allergies Medications Name Sig Start Date Stop Date Status Note LastModified by Organization Details LastModified Time amoxicillin 500 mg capsule TAKE 1 CAPSULE BY MOUTH EVERY 8 HOURS FOR 7 DAYS. 04/22 completed Not Available Not Available Not Available trazodone 50 mg tablet TAKE 1 TABLET BY MOUTH EVERYDAY AT BEDTIME active Not Available Not Available No t Available ibuprofen 800 mg tablet TAKE 1 TABLET BY MOUTH EVERY 8 HOURS FOR 5 DAYS active Not Available Not Available No t Available sumatriptan 50 mg tablet TAKE 1 TABLET BY MOUTH ONE TIME IF NEEDED FOR MIGRAINE FOR UP TO 1 DOSE active Not Available Not Available No t Available ciprofloxac in 500 mg tablet TAKE 1 TABLET BY MOUTH TWICE A DAY FOR 7 DAYS 04/22 completed Not Available Not Available Not Available acetaminoph en 500 mg tablet TAKE 1 TABLET BY MOUTH EVERY 6 HOURS IF NEEDED FOR MILD PAIN, MODERATE PAIN, HEADACHES OR FEVER active Not Available Not Available No t Available amoxicillin 500 mg tablet TAKE 1 TABLET 3 TIMES A DAY UNTIL FINISHED 04/22 completed Not Available Not Available Not Available oxycodone-a cetaminophe n 5 mg-325 mg tablet TAKE 1 TABLET EVERY 6 HOURS NEEDED FOR PAIN *WAITING FOR MD CALL BACK active Not Available Not Available No t Available gabapentin 800 mg tablet TAKE 1 TABLET (800 MG TOTAL) BY MOUTH 3 (THREE) TIMES A DAY IF NEEDED (PAIN). active Not Available Not Available No t Available hydroxyzine HCl 25 mg tablet TAKE 1 TABLET BY MOUTH THREE TIMES A DAY NEEDED FOR ANXIETY active Not Available Not Available No t Available ibuprofen 600 mg tablet TAKE 1 TABLET 4 TIMES A DAY WITH MEALS NEEDED active Not Available Not Available No t Available albuterol sulfate HFA 90 mcg/actuati on aerosol inhaler INHALE 2 PUFFS BY MOUTH EVERY 4 (FOUR) HOURS IF NEEDED FOR WHEEZING. active Not Available Not Available No t Available oxybutynin chloride 5 mg tablet TAKE 1 TABLET BY MOUTH TWICE A DAY active Not Available Not Available No t Available ondansetron 4 mg disintegrat ing tablet TAKE 1 TABLET BY MOUTH THREE TIMES A DAY FOR 5 DAYS active Not Available Not Available No t Available fluticasone propionate 50 mcg/actuati on nasal spray,suspe nsion SPRAY 2 SPRAYS INTO EACH NOSTRIL EVERY DAY active Not Available Not Available No t Available fluticasone propionate 110 mcg/actuati on HFA aerosol inhaler INHALE 2 PUFFS BY MOUTH 2 TIMES A DAY active Not Available Not Available No t Available amoxicillin 875 mg-potassiu m clavulanate 125 mg tablet TAKE 1 TABLET BY MOUTH TWICE A DAY FOR 10 DAYS 04/22 completed Not Available Not Available Not Available pregabalin 100 mg capsule TAKE 1 CAPSULE (100 MG TOTAL) BY MOUTH 3 TIMES A DAY MAX DAILY AMOUNT: 300 MG active Not Available Not Available No t Available chlorhexidi ne gluconate 0.12 % mouthwash RINSE MOUTH WITH 15ML (1 CAPFUL) FOR 30 SECONDS IN MORNING AND EVENING AFTER BRUSHING, THEN SPIT active Not Available Not Available No t Available fluoxetine 60 mg tablet TAKE 1 TABLET BY MOUTH EVERY DAY active Not Available Not Available No t Available buprenorphi ne 12 mg-naloxone 3 mg sublingual film DISSOLVE 2 FILMS UNDER TONGUE ONCE A DAY active Not Available Not Available No t Available Arnuity Ellipta 100 mcg/actuati on powder for inhalation INHALE 1 PUFF BY MOUTH 1 (ONE) TIME EACH DAY. RINSE MOUTH AFTER EACH USE active Not Available Not Available No t Available Vitals Date Recorded Body weight Body temperature Respiratory rate Oxygen saturation Body height Heart rate Systolic And Diastolic Provider Name and Address Organization Details Last Updated DateTime 5 831601. 84 g 98.7 [degF] 16 /min 98 % 160.02 cm 75 /min 166/98 mm[Hg] Not Available [facility] - production 5 13:45:59 Social History None recorded. Functional Status None recorded. Mental Status None recorded. Family History Nothing Reported. Medical History No medical history recorded. Gynecological HistoryNo gynecological history recorded. Obstetrics History GPAL:G 0 P 0 0 0 0 Past Encounters Encounter ID Performer Location Encounter Start Date Encounter Closed Date Diagnosis/Indication Diagnosis SNOMED-CT Code Diagnosis ICD10 Code Diagnosis IMO Codes Diagnosis Note [id number] Clint Choi MD [facility] ED Medical [address] [phone] 04/23/2025 13:45:54 04/23/2025 21:07:09 Chronic low back pain 723010861 M54.50 G89.29 [id number] Health Concerns Section Related Observation LastModified by Organization Detai ls LastModified Time None Recorded Concern Status LastModified by Organization Details LastModified Time None Recorded Payers Encounter Date Sequence Insurance Name Policy Number Policy Londono Covered Member ID Londono Member ID Guarantor Name 04/23/2025 1 [facility] - DOS ON OR AFTER 2022 - DUAL ELIGIBLE - LONG TERM OPTIONS AND ONE CARE (MEDICARE REPLACEMENT/ADV ANTAGE - HMO) Gianna Tomas [id number] Gianna Tomas Notes Date Note Type Note Provider Name and Address Organization Details Recorded Time 04/23/2025 text/html ROS as noted in the [facility] Nurse Triage Notes (Jeni Napoles): Reason For Request: back pain/shooting pain down both legsfor tomorrow 04/23/25 Denies: Falls with head strike and LOC Falls from a standing position, no LOC, patient is amnestic to the event Falls with isolated injury and deformity noted to limb Falls with inability to move post fall Cool extremities after fall or injury Chief Complaints: Back Pain, Extremity Pain PMH: Fibromyalgia, Osteoarthritis PMH Reviewed at 04/22/2025 - :31 Allergies Reviewed at 04/22/2025 - :31 Pain Assessment: Level 9 out of 10 Comments: 44 y.o female complains of Back Pain, Extremity Pain Self-referring. Back pain with shooting pain into butt and BLE. Pain originates in lower left lumbar spine - pain equal in legs. Worse since last Saturday 04/14 - twisted in a strange way and then pain was worse. Has an appointment with orthopedic surgeon - not for a while. Ibuprofen, hot packs, tylenol. Feet get so swollen at times, unable to put shoes on. Reports that she's been dealing eith this for quite a while . 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 Rating pain 9-10/10. Able to bear weight and walk, short distances with breaks due to pain. Has to sleep sitting up sometimes due to the pain. Not on anticoagulation. Denies kidney issues. I provided information on the mobile health provider response time and advised the patient and/or caregiver to monitor reported signs and symptoms. I discussed the warning signs of when to seek emergency care. .................... .................... .................... .................... .................... .................... .................... . Newspaper Journalist Note From Lazaro Monique: [facility] visit for female patient with complaints of pain in multiple areas. Patient presents alone at home and was able to ambulate answering the door. Patient reports chronic history of fibromyalgia and right knee pain with unspecified tumor affecting right knee. Patient takes Lyrica gabapentin ibuprofen, and Tylenol for this pain. Patient reports doctor suddenly cut her dose of Lyrica down from three times a day to one time a day. Separately, patient tweaked her back nine days ago, resulting in left lumbar pain. Some pain underneath the buttocks of both sides and occasional numbness reported as well. Patient presents answering the door ambulating at home without assistance. Vital signs taken as listed. No fever noted. On exam, no evidence of falls, trauma, external signs of injury. No tenderness on palpation on the right knee. Some tenderness on palpation left lumbar region inconsistent with muscle spasm. No numbness during exam. Slight pitting edema noted in lower extremities with patient previously on diuretic though discontinued. Consult consulted with [facility] who ordered 30 MG of Toradol IM given on scene. Patient encouraged to follow up with PCP as well as referrals for pain management physician and possibly rheumatology. Review reviewed red flags. Patient education provide provided. [facility] Medication Orders: ketorolac 30 mg/mL injection solution: Administered .................... .................... .................... .................... .................... .................... .................... . [facility] Consulted: Clint Choi .................... .................... .................... .................... .................... .................... .................... . Disposition: Fulfilled Clint Choi MD [address] [place] [address],[address], [place], [address], [facility] [address], [facility] 04/23/2025 15:36:09 OBGyn Episode No OBEpisode recorded.
--- OUTSIDE RECORDS SUMMARY | 2025-05-25 19:14 | XMS_ITS | Encounter Summary ---
Author Organization [facility] Address [address] [place] [address] Care Team Providers Care Senior Security Engineer Name Role Phone Janie Martines MD Primary Care Provider [phone] Reason for Referral * Consultation (Routine) - Authorized Specialty Diagnoses / Procedures Referred By Contact Referred To Contact Orthopaedics / Orthopaedic Surgery Diagnoses Left hip pain Chronic pain of right knee Shelia Peters NP [address] [address] Phone: tel: fax: Orthopedic Surgery - [place] [address] [address] Phone: tel: fax: Referral ID Status Reason Start Date Expiration Date Visits Requested Visits Authorized [id number] Authorized Specialty Services Required 5 05/24/2026 1 1 Encounter Details Date Type Department Care Team (Late st Contact Info) Description 05/24/2025 Results Follow-Up Internal Medicine - [place] [address] [phone] Shelia Peters NP [address] [address] Social History Tobacco Use Types Packs/Day Years [...] for your loved ones. For example, child monitor or elderly care for an older adult? [...] AM EST documented as of this encounter Plan of Treatment Upcoming Encounters Date Type Department Care Team (Late st Contact Info) Description 07/13/2025 1:30 PM EST Office Visit Urogynecology - [address] [address] Mitra Yun MD [address] [facility] [address] [place] [address] Scheduled Referrals Name Type Priority Associated Diagnoses Order Schedule Ambulatory referral to Orthopedic Outpatient Referral Routine Left hip pain Chronic pain of right knee 1 Occurrences starting 05/24/2025 until 05/24/2026 documented as of this encounter Visit Diagnoses Diagnosis Left hip pain- Primary Pain in joint, pelvic region and thigh Chronic pain of right knee documented in this encounter Additional Health Concerns Assessment Noted Time PHQ-9 Depression Total Score: 0 01/06/20 25 1:20 PM EDT documented as of this encounter Care Teams Senior Security Engineer Relationship Specialty Start Date End Date Janie Martines MD [address] [place] [address] [address] [place] [address] PCP - General 01/22/24 documented as of this encounter
--- OUTSIDE RECORDS SUMMARY | 2025-05-25 19:14 | XMS_ITS | Encounter Summary ---
Author Organization [facility] [address] Address [address] [place] [address] Care Team Providers Care Coconut Jelly Roller Name Role Phone Janie Martines MD Primary Care Provider [phone] Encounter Details Date Type Department Care Team ([facility] st Contact Info) Description 04/06/2025 Results Follow-Up Internal Medicine - [place] [address] [place] [address] Janie Martines MD [address] [place] [address] Social History Tobacco Use Types Packs/Day Years [...] before we got money to buy more. Not on file 01/05/2025 Within the past 12 months th e food we bought just didn't last and we didn't have money to get more. Never true 01/05/2025 Dependent Care Answer Date Recorded Do you need help finding or paying for care for your loved ones. For example, child abuse worker or elderly care for an older adult? [...] 07/13/2025 1:30 PM EST Office Visit Urogynecology [address] [address] Mitra Yun MD [address] [place] [address] [address] [place] [address] documented as of this encounter Visit Diagnoses Not on filedocumented in this encounter Additional Health Concerns Assessment Noted Time PHQ-9 Depression Total Score: 0 01/06/20 25 1:20 PM EDT documented as of this encounter Care Teams Coconut Jelly Roller Relationship Specialty Start Date End Date Janie Martines MD [address] [place] [phone] PCP - General 01/22/24 documented as of this encounter
--- OUTSIDE RECORDS SUMMARY | 2025-05-25 19:14 | XMS_ITS | Clinical Summary ---
Author Organization [facility] Address [address] [place] [address] Phone Care Team Providers Care Datapower Consultant Name Role Phone Janie Martines MD Primary Care Provider [phone] Allergies No known active allergies Medications oxyBUTYnin (DITROPAN) 5 mg tabletIndicatio ns:Overactive bladder Take 1 tablet (5 mg total) by mouth 2 (two) times a day. 60 each 10/02/19 25 026 Active fluticasone propionate (FLONASE) 50 mcg/actuation nasal spray SPRAY 2 SPRAYS INTO EACH NOSTRIL EVERY DAY 48 mL 1 12/24/19 25 Active fluticasone furoate (Arnuity Ellipta) 100 mcg/actuation blister with device inhaler Inhale 1 puff by mouth 1 (one) time each day. 1 each 01/06/20 25 026 Active acetaminophen (TYLENOL) 500 mg tablet Take 1 tablet (500 mg total) by mouth every 6 (six) hours if needed for mild pain, moderate pain, headaches or fever - temperature GREATER than 38 C (100.4 F). 90 tablet 01/06/20 25 Active traZODone (DESYREL) 50 mg tabletIndicatio ns:Insomnia, unspecified type TAKE 1 TABLET BY MOUTH EVERYDAY AT BEDTIME 90 tablet 1 02/26/20 25 Active albuterol HFA (PROAIR HFA ; PROVENTIL HFA ; VENTOLIN HFA) 90 mcg/actuation inhaler Inhale 2 puffs by mouth every 4 (four) hours if needed for wheezing. 18 each 3 04/05/20 25 Active gabapentin (NEURONTIN) 800 mg tabletIndicatio ns:Low back pain, unspecified back pain laterality, unspecified chronicity, unspecified whether sciatica present Take 1 tablet (800 mg total) by mouth 3 (three) times a day if needed (pain). 120 tablet 5 04/05/20 25 Active hydrOXYzine HCL (ATARAX) 25 mg tablet TAKE 1 TABLET BY MOUTH THREE TIMES A DAY NEEDED FOR ANXIETY 30 tablet 2 04/12/20 25 Active FLUoxetine (PROzac) 60 mg tablet TAKE 1 TABLET BY MOUTH EVERY DAY 30 tablet 5 04/15/20 25 Active pregabalin (LYRICA) 100 mg capsuleIndicati ons:Low back pain, unspecified back pain laterality, unspecified chronicity, unspecified whether sciatica present TAKE 1 CAPSULE (100 MG TOTAL) BY MOUTH 3 TIMES A DAY MAX DAILY AMOUNT: 300 MG 90 capsule 1 04/20/20 25 Active SUMAtriptan (IMITREX) 50 mg tabletIndicatio ns:Other migraine with status migrainosus, intractable TAKE 1 TABLET BY MOUTH ONE TIME IF NEEDED FOR MIGRAINE FOR UP TO 1 DOSE 12 tablet 1 05/12/20 25 Active cyclobenzaprine (FLEXERIL) 10 mg tabletIndicatio ns:Muscle spasm Take 1 tablet (10 mg total) by mouth at bedtime as needed for muscle spasms. 30 tablet 2 05/24/20 25 026 Active methylPREDNISol one (MEDROL DOSPAK) 4 mg tabletIndicatio ns:Chronic bilateral low back pain with bilateral sciatica Take as directed on package. 21 tablet 05/24/20 25 025 Active SUMAtriptan (IMITREX) 50 mg tabletIndicatio ns:Other migraine with status migrainosus, intractable Take 1 tablet (50 mg total) by mouth 1 (one) time if needed for migraine for up to 1 dose. 12 tablet 1 03/09/20 25 025 Discontinued Active Problems Problem Noted Date Diagnosed Date Fibromyalgia 01/05/2025 Anxiety and depression 01/05/2025 Urinary incontinence 01/05/2025 Obstructive sleep apnea 01/05/2025 Allergic rhinitis 01/05/2025 Class 3 severe obesity due t o excess calories without serious comorbidity with body mass index (BMI) of 45.0 to 49.9 in adult 01/05/2025 Moderate asthma 01/05/2025 Encounters Date Type Department Care Team Description 05/24/2025 3:03 PM EST - 05/24/2025 11:59 PM EST Hospital Encounter [facility] Xray [address] [place] [phone] Chronic pain of right knee Discharge Disposition: Home or Self Care 05/24/2025 2:54 PM EST - 05/24/2025 11:59 PM EST Hospital Encounter [facility] Xray [address] [place] [phone] Left hip pain Discharge Disposition: Home or Self Care 05/24/2025 2:30 PM EST Office Visit Internal Medicine - [place] [address] [address] Shelia Peters NP Chronic bilateral low back pain with bilateral sciatica (Primary Dx); Muscle spasm; Chronic pain of right knee; Left hip pain; Prediabetes; BMI 45.0-49.9, adult (CMS/HCC V24, CMS/HCC V28); Moderate asthma, unspecified whether complicated, unspecified whether persistent; Atypical mole 05/24/2025 Results Follow-Up Internal Medicine - [place] [address] [address] Shelia Peters NP 05/10/2025 2:00 PM EST - 05/10/2025 11:59 PM EST Hospital Encounter Radiology Department - [address] [address] Abnormal mammogram Discharge Disposition: Home or Self Care 05/10/2025 2:00 PM EST - 05/10/2025 11:59 PM EST Hospital Encounter Radiology Department - [address] [address] Abnormal mammogram Discharge Disposition: Home or Self Care 05/10/2025 Results Follow-Up Internal Medicine - [place] [address] [address] Janie Martines MD 04/30/2025 Telephone Internal Medicine - [place] 175 [facility] [address] [place] [address] Janie Martines MD 04/06/2025 Results Follow-Up Internal Medicine - [place] 175 [facility] [address] [place] [phone] Janie Martines MD 04/02/2025 3:20 PM EDT - 04/02/2025 11:59 PM EDT Hospital Encounter Radiology Department - [address] [address] Screening mammogram for breast cancer Discharge Disposition: Home or Self Care from Last 3 Months Surgical History Surgery Date Site/Laterality Comments ESOPHAGOGASTRODUODENOSCOPY 04/23/2007 PROCEDURE: SC EGD TRANSORAL BIOPSY SINGLE/MULTIPLE; COMMENT: Antral gastritis-bx:Chronic gastritis, mild/mod activity, H. pylori+. CARPAL TUNNEL RELEASE 02/2022 Bilateral PROCEDURE: HISTORICAL CARPAL TUNNEL REL Medical History Medical History Date Comments Depressive disorder, not els ewhere classified 10/10/2005 DX:Depressive disorder, not elsewhere classified Lumbago 10/10/2005 DX:Lumbago Unspecified asthma(493.90) 10/10/2005 DX:Un specified asthma(493.90) Anxiety state, unspecified DX:An xiety state, unspecified Marijuana abuse 07/07/2007 DX:Marijuana abu se Cervical high risk HPV (neeraj n papillomavirus) test positive 2012,2016 DX:Cervical high risk HP V (human papillomavirus) test positive COVID-19 virus infection 07/26/2020 DX:COVI D-19 virus infection; COMMENT: 07/21/20 Family History Medical History Relation Name Comments Arthritis Father Other cancer Maternal Grandfather unknown type Mental illness Mother also drug abu se Ovarian cancer Other 2 unknown Colon cancer Other 3 unknown Relation Name Status Comments Father Alive Maternal Grandfather Mother Alive Other 1 Alive Other 2 Other 3 Sister Alive Social History Tobacco Use Types Packs/Day [...] care for your loved ones. For example, child's nurse or elderly care for an older adult? [...] Orientation Bisexual 04/19/2025 9: 56 AM EST Obstetrics History Para Term AB IAB SAB Ectopic Multiple Livin g Live Births 3 3 3 3 Date Outcome GA Total Labor Labor/2nd/3rd Weight Sex Type Anes PTL Rose A1 A5 Name Clin Term Term Term Last Filed Vital Signs Vital Sign Reading [...] Mass Index 49.3 05/24/2025 2:12 PM EST Plan of Treatment Upcoming Encounters Date Type Department Care Team (Late st Contact Info) Description 07/13/2025 1:30 PM EST Office Visit Urogynecology - [facility] [address] [place] [address] Mitra Yun MD [address] [place] [address] [address] [place] [address] Health Maintenance Due Date Last Done Comments Hepatitis A Vaccines (1 of 2 - Risk 2-dose series) 2000 Hepatitis B Vaccines (1 of 3 - 19+ 3-dose series) 2000 Cervical Cancer Screening: Pap Smear 2002 HIV Screening 05/19/2022 Hepatitis C Screening 05/19/2022 Medicare Annual Wellness Visit 05/19/2022 COVID-19 Vaccine ( season) 2025 05/17/2024, 12/04/2020, 11/11/2020 HPV Vaccines (2 - 3-dose SCDM series) 03/11/2025 02/11/2025 DTaP,Tdap,and Td Vaccines (4 - Td or Tdap) 09/16/2025 09/17/2015, 03/20/2011, 10/10/2005 Social Influencers of Health Screening 05/24/2026 05/24/2025 Breast Cancer Screening 05/10/2027 05/10/2025, 04/02 Cholesterol Screening (Lipid Panel) 10/08/2029 10/08/2024 RSV Immunization Adult Patients (1 - 1-dose 75+ series) 2056 Pneumococcal Vaccine: Pediatrics (0 to 5 Years) and At-Risk Patients (6 to 49 Years) Completed 05/17/2024, 03/23/2016 Depression Screening Completed 01/05/2025 Influenza Vaccine Completed 02/11/2025, , 03/21/2023, Additional history exists HIB Vaccines Aged Out No longer eligi ble based on patient's age to complete this topic IPV Vaccines Aged Out No longer eligi ble based on patient's age to complete this topic MMR Vaccines Aged Out No longer eligi ble based on patient's age to complete this topic Meningococcal ACWY Vaccine Aged Out N o longer eligible based on patient's age to complete this topic Meningococcal B Vaccine Aged Out No l onger eligible based on patient's age to complete this topic RSV Immunization Patients Under 20 months Aged Out No longer eligible based on patient's age to complete this topic Varicella Vaccines Aged Out No longer eligible based on patient's age to complete this topic Procedures Procedure Name Priority Date/Time Associated Diagnosis Comments XR HIP 2-3 VIEWS LEFT Routine 05/24/2025 3:15 PM EST Left hip pain XR KNEE 4+ VIEWS RIGHT Routine 05/24/2025 3:15 PM EST Chronic pain of right knee US BREAST LIMITED RIGHT Routine 05/10/2025 2:49 PM EST Abnormal mammogram MG MAMMO DIGITAL DIAGNOSTIC W PAUL BILAT Routine 05/10/2025 2:26 PM EST Abnormal mammogram MG MAMMO DIGITAL SCREENING W PAUL BILAT Routine 04/02/2025 3:40 PM EDT Screening mammogram for breast cancer LIPID PANEL WITH REFLEX TO DIRECT LDL Routine 10/08/2024 11:48 AM EDT Hypercholesterolemi a from Last 3 Months or Most Recently Relevant to Health Maintenance Results * XR Hip 2-3 Views Left [...] Signed Date: 05/24/2025 15:25 ET Workstation ID: [id number] Transcribed By: Self Edit Transcribed Date: 05/24/2025 [...] Signed Date: 05/24/2025 15:25 ET Workstation ID: [id number] Transcribed By: Self Edit Transcribed Date: 05/24/2025 15:24 ET Shelia Peters CAMOUFLAGE SPECIALIST IMG XR PROCEDURES Final Result * XR Knee 4+ Views Right (05/24/2025 3:15 PM EST) Anatomical Region Laterality Modality Lower Extremities, Knee [facility]/24/2025 3:23 PM EST Impressions 05/24/2025 3:26 PM EST Mild degenerative changes. No acute findings. -------- FINAL REPORT -------- Dictated By: Kurtis Castillo Dictated Date: 05/24/2025 15:23 ET Assigned Physician: Kurtis Castillo Reviewed and Electronically Signed By: Kurtis Castillo Signed Date: 05/24/2025 15:26 ET Workstation ID: [id number] Transcribed By: Self Edit Transcribed Date: 05/24/2025 [...] Signed Date: 05/24/2025 15:26 ET Workstation ID: [id number] Transcribed By: Self Edit Transcribed Date: 05/24/2025 15:24 ET us Shelia Peters CAMOUFLAGE SPECIALIST IMG XR PROCEDURES Final Result * US Breast Limited Right (05/10/2025 2:49 PM EST) Anatomical Region Laterality Modality Breast Right Ultrasound 05/10/2025 3:03 PM EST Impressions 05/10/2025 3:11 PM EST Right mammographic abnormality corresponds with a benign cyst. No further workup needed. Left mammographic abnormality does not persist. Routine annual screening mammography recommended. BREAST DENSITY: B - There are scattered areas of fibroglandular density. BI-RADS CATEGORY: 2 - BENIGN RECOMMENDATION: Screening bilateral mammogram is recommended in 1 year. MAMMO LOCATION: [facility], [address] [place] [address], [id number], . -------- FINAL REPORT -------- Dictated By: Nay Rodriguez Dictated Date: 05/10/2025 15:03 ET Assigned Physician: Nay Rodriguez Reviewed and Electronically Signed By: Nay Rodriguez Signed Date: 05/10/2025 15:11 ET Workstation ID: [id number] Transcribed By: Self Edit Transcribed Date: 05/10/2025 15:03 ET Narrative 05/10/2025 3:11 PM EST EXAM: MG MAMMO DIGITAL DIAGNOSTIC W PAUL BILAT, US BREAST LIMITED RIGHT HISTORY: Call back from a screening mammogram. FINDINGS: Right: -90 ML and spot compression MLO and CC views performed with tomosynthesis. Persistent 0.7 cm lobulated lesion in the retroareolar breast at the middle/posterior depth. Targeted sonography shows a corresponding 0.7 x 0.6 x 0.3 cm thinly septated cyst. Left: -90 ML and spot compression MLO and CC views performed with tomosynthesis. The asymmetry in the anterior upper breast on the MLO view does not persist. No mass or architectural distortion apparent. Procedure Note Nay Rodriguez MD - 05/10/2025 EXAM: MG MAMMO DIGITAL DIAGNOSTIC W PAUL BILAT, US BREAST LIMITED RIGHT HISTORY: Call back from a screening mammogram. FINDINGS: Right: -90 ML and spot compression MLO and CC views performed with tomosynthesis.Persistent 0.7 cm lobulated lesion in the retroareolar breast at themiddle/posterior depth. Targeted sonography shows a corresponding 0.7 x0.6 x 0.3 cm thinly septated cyst. Left: -90 ML and spot compression MLO and CC views performed with tomosynthesis.The asymmetry in the anterior upper breast on the MLO view does notpersist. No mass or architectural distortion apparent. IMPRESSION: Right mammographic abnormality corresponds with a benign cyst. No furtherworkup needed. Left mammographic abnormality does not persist. Routine annual screening mammography recommended. BREAST DENSITY: B - There are scattered areas of fibroglandular density. BI-RADS CATEGORY: 2 - BENIGN RECOMMENDATION: Screening bilateral mammogram is recommended in 1 year. MAMMO LOCATION: [facility], [address] [place] [address], [facility], . -------- FINAL REPORT -------- Dictated By: Nay Rodriguez Dictated Date: 05/10/2025 15:03 ET Assigned Physician: Nay Rodriguez Reviewed and Electronically Signed By: Nay Rodriguez Signed Date: 05/10/2025 15:11 ET Workstation ID: [id number] Transcribed By: Self Edit Transcribed Date: 05/10/2025 15:03 ET us Janie Martines MD IMG US PROCEDURES Final Result * MG Mammo Digital Diagnostic w Paul bilat (05/10/2025 2:26 PM EST) Anatomical Region Laterality Modality Breast Bilateral Mammography 05/10/2025 3:03 PM EST Impressions 05/10/2025 3:11 PM EST Right mammographic abnormality corresponds with a benign cyst. No further workup needed. Left mammographic abnormality does not persist. Routine annual screening mammography recommended. BREAST DENSITY: B - There are scattered areas of fibroglandular density. BI-RADS CATEGORY: 2 - BENIGN RECOMMENDATION: Screening bilateral mammogram is recommended in 1 year. MAMMO LOCATION: [facility], [address] [place] [address], [id number], . -------- FINAL REPORT -------- Dictated By: Nay Rodriguez Dictated Date: 05/10/2025 15:03 ET Assigned Physician: Nay Rodriguez Reviewed and Electronically Signed By: Nay Rodriguez Signed Date: 05/10/2025 15:11 ET Workstation ID: [id number] Transcribed By: Self Edit Transcribed Date: 05/10/2025 15:03 ET Narrative 05/10/2025 3:11 PM EST EXAM: MG MAMMO DIGITAL DIAGNOSTIC W PAUL BILAT, US BREAST LIMITED RIGHT HISTORY: Call back from a screening mammogram. FINDINGS: Right: -90 ML and spot compression MLO and CC views performed with tomosynthesis. Persistent 0.7 cm lobulated lesion in the retroareolar breast at the middle/posterior depth. Targeted sonography shows a corresponding 0.7 x 0.6 x 0.3 cm thinly septated cyst. Left: -90 ML and spot compression MLO and CC views performed with tomosynthesis. The asymmetry in the anterior upper breast on the MLO view does not persist. No mass or architectural distortion apparent. Procedure Note Nay Rodriguez MD - 05/10/2025 EXAM: MG MAMMO DIGITAL DIAGNOSTIC W PAUL BILAT, US BREAST LIMITED RIGHT HISTORY: Call back from a screening mammogram. FINDINGS: Right: -90 ML and spot compression MLO and CC views performed with tomosynthesis.Persistent 0.7 cm lobulated lesion in the retroareolar breast at themiddle/posterior depth. Targeted sonography shows a corresponding 0.7 x0.6 x 0.3 cm thinly septated cyst. Left: -90 ML and spot compression MLO and CC views performed with tomosynthesis.The asymmetry in the anterior upper breast on the MLO view does notpersist. No mass or architectural distortion apparent. IMPRESSION: Right mammographic abnormality corresponds with a benign cyst. No furtherworkup needed. Left mammographic abnormality does not persist. Routine annual screening mammography recommended. BREAST DENSITY: B - There are scattered areas of fibroglandular density. BI-RADS CATEGORY: 2 - BENIGN RECOMMENDATION: Screening bilateral mammogram is recommended in 1 year. MAMMO LOCATION: [facility], [address] [place] [address], [address], . -------- FINAL REPORT -------- Dictated By: Nay Rodriguez Dictated Date: 05/10/2025 15:03 ET Assigned Physician: Nay Rodriguez Reviewed and Electronically Signed By: Nay Rodriguez Signed Date: 05/10/2025 15:11 ET Workstation ID: [id number] Transcribed By: Self Edit Transcribed Date: 05/10/2025 15:03 ET Janie Martines MD IMG BI PROCEDURES Final Result * (ABNORMAL) MG Mammo Digital Screening w Paul bilat (04/02/2025 3:40 PM EDT) Anatomical Region Laterality Modality Breast Bilateral Mammography 04/05/2025 6:28 PM EDT Impressions 04/05/2025 6:33 PM EDT 1. Right: Indeterminate inferior breast focal asymmetry at posterior depth 2. Left: Indeterminate MLO slightly above the nipple anterior depth asymmetry 3. Scattered fibroglandular tissue BI-RADS CATEGORY: 0 - INCOMPLETE - NEED ADDITIONAL IMAGING EVALUATION RECOMMENDATION: Additional bilateral breast imaging recommended. Right breast CC and MLO spot compression, full-field ML, left breast MLO spot compression, full-field ML, targeted bilateral ultrasound Mammo Location: [facility], [address] [place] [address], [id number], . -------- FINAL REPORT -------- Dictated By: Toni Melo Dictated Date: 04/05/2025 18:28 ET Assigned Physician: Toni Melo Reviewed and Electronically Signed By: Toni Melo Signed Date: 04/05/2025 18:33 ET Workstation ID: [id number] Transcribed By: Self Edit Transcribed Date: 04/05/2025 18:28 ET Narrative 04/05/2025 6:33 PM EDT A BILATERAL DIGITAL 3D SCREENING MAMMOGRAPHY HISTORY: Routine screening. COMPARISON: Baseline Technique: Bilateral full field digital mammography (3D) was performed using standard CC and MLO projections CAD was used to evaluate this mammogram. FINDINGS: Right: Indeterminate inferior breast focal asymmetry at posterior depth Left: Indeterminate MLO slightly above the nipple anterior depth asymmetry BREAST DENSITY: B - There are scattered areas of fibroglandular density. Procedure Note Toni Melo MD - 04/05/2025 A BILATERAL DIGITAL 3D SCREENING MAMMOGRAPHY HISTORY: Routine screening. COMPARISON: Baseline Technique: Bilateral full field digital mammography (3D) was performedusing standard CC and MLO projections CAD was used to evaluate this mammogram. FINDINGS: Right: Indeterminate inferior breast focal asymmetry at posterior depth Left: Indeterminate MLO slightly above the nipple anterior depth asymmetry BREAST DENSITY: B - There are scattered areas of fibroglandular density. IMPRESSION: 1. Right: Indeterminate inferior breast focal asymmetry at posteriordepth 2. Left: Indeterminate MLO slightly above the nipple anterior depthasymmetry 3. Scattered fibroglandular tissue BI-RADS CATEGORY: 0 - INCOMPLETE - NEED ADDITIONAL IMAGING EVALUATION RECOMMENDATION: Additional bilateral breast imaging recommended. Right breast CC and MLOspot compression, full-field ML, left breast MLO spot compression,full-field ML, targeted bilateral ultrasound Mammo Location: [facility], [address] [place] [address], [id number], . -------- FINAL REPORT -------- Dictated By: Toni Melo Dictated Date: 04/05/2025 18:28 ET Assigned Physician: Toni Melo Reviewed and Electronically Signed By: Toni Melo Signed Date: 04/05/2025 18:33 ET Workstation ID: [id number] Transcribed By: Self Edit Transcribed Date: 04/05/2025 18:28 ET us Janie Martines MD IM BI PROCEDURES Final Result * Lipid panel with reflex to direct LDL (10/08/2024 11:48 AM EDT) Cholesterol 142 0 - 200 mg/dL LAB CHEMISTRY METHOD 10/08/2024 1:42 PM EDT [facility] Triglycerides 47 0 - 150 mg/dL LAB CHEMISTRY METHOD 10/08/2024 1:42 PM EDT [facility] HDL 51 >=40 mg/dL LAB CHEMISTRY METHOD 10/08/2024 1:42 PM EDT [facility] LDL Calculated 82 0 - 100 mg/dL LAB CHEMISTRY METHOD 10/08/2024 1:42 PM EDT [facility] VLDL Cholesterol Ainceto 9.4 mg/dL LAB CHEMISTRY METHOD 10/08/2024 1:42 PM EDT [facility] Non HDL Chol. (LDL+VLDL) 91 <145 mg/dL LAB CHEMISTRY METHOD 10/08/2024 1:42 PM EDT [facility] Chol/HDL Ratio 2.8 0.0 - 4.4 LAB CHEMISTRY METHOD 10/08/2024 1:42 PM EDT [facility] Blood Venous blood specimen / Unknown Venipuncture / Unknown 10/08/2024 11:48 AM EDT 10/08/2024 12:29 PM EDT us Theodoremaricel Fran [employer]OUFLAGE SPECIALIST LAB BLOOD ORDERABLES Final Resul t [facility] [address] [place] [address], from Last 3 Months or Most Recently Relevant to Health Maintenance Insurance [employer] MEDICARE Member Subscriber Plan / Payer (Ef fective 2017-Present) Name:GIANNA HERRERA Relation to Subscriber:Self Name:Thom Gianna Payer ID:[id number] Group ID:[id number] Type:Not on file Address: [place] [address] [address] [address] Care Teams Datapower Consultant Relationship Specialty Start Date End Date Janie Martines MD [address] [place] [phone] PCP - General 01/22/24
--- OUTSIDE RECORDS SUMMARY | 2025-05-25 19:14 | XMS_ITS | Encounter Summary ---
Author Organization [facility] Address [address] [place] [address] Care Team Providers Care Material Control Associate Name Role Phone Janie Martines MD Primary Care Provider [phone] Encounter Details Date Type Department Care Team ([facility] st Contact Info) Description 05/10/2025 Results Follow-Up Internal Medicine - [place] [address] [address] [place] [address] Janie Martines MD [address] [place] [address] Social History Tobacco Use Types Packs/Day Years [...] your loved ones. For example, child care nurse or elderly care for an older [...] 07/13/2025 1:30 PM EST Office Visit Urogynecology [address] [address] Mitra Yun MD [address] [place] [address] [address] [place] [address] documented as of this encounter Visit Diagnoses Not on filedocumented in this encounter Additional Health Concerns Assessment Noted Time PHQ-9 Depression Total Score: 0 01/06/20 25 1:20 PM EDT documented as of this encounter Care Teams Material Control Associate Relationship Specialty Start Date End Date Janie Martines MD [address] [place] [phone] PCP - General 01/22/24 documented as of this encounter
--- OUTSIDE RECORDS SUMMARY | 2025-05-25 19:14 | XMS_ITS | Encounter Summary ---
Author Organization [facility] Address [address] [place] [address] Encounters * CPT with [facility] at [place] on 2025-04-23 { reasonForRequest : back pain/shooting pain down both legsfor tomorrow 04/23/25", patientReports : , denies :[ Falls with head strike and LO C , Falls from a standing position, no LOC, patient is amnestic to the event , F alls with isolated injury and deformity noted to limb , Falls with inability to move postfall , Cool extremities after fall or injury ], chiefComplaints : Back Pain, Extremity Pain , pmh : Fibromyalgia, Osteoarthritis , allergies : No Known Drug Allergies , otherAllergies : , painAssessment : Level 9 out of 10 , visitOutcome : , additionalComments : 44 y.o female complains of Back Pain, Extremity Pain\n\nSelf-referring. Back pain with shooting pain into butt and BLE. Pain originates in lower left lumbar spine - pain equal in legs.Worse since last Saturday 04/14 - twisted in a strange way and then pain was worse. Has an appointment with orthopedic surgeon - not for a while. Ibuprofen, hot packs, tylenol. Feet get so swollen at times, unable to put shoes on. Reports that she's been dealing eith this for \ quite a while\". 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 Rating pain 9-10/10. Able to bear weight and walk, short distances with breaks due to pain. Has to sleep sitting up sometimes due to the pain. Not on anticoagulation. Denies kidney issues. \n\nI provided information on the mobile health provider response time and advised the patient and/or caregiver to monitor reported signsand symptoms. I discussed the warning signs of when to seek emergency care. } [facility] of pain in multiple areas. Patient presents alone at home and was able to ambulate answering the door. Patient reports chronic history of fibromyalgia and right knee pain with unspecified tumor affecting right knee. Patient takes Lyrica gabapentin ibup rofen, and Tylenol for this pain. Patient reports doctor suddenly cut her dose of Lyrica down from three times a day to one time a day. Separately, patient tweaked her back nine days ago, resulting in left lumbar pain. Some pain underneath the buttocks of both sides and occasional numbness reportedas well. Patient presents answering the door ambulating [...] on diuretic though discontinued. Consult consulted with [facility] [place] who ordered 30 MG of Toradol IMgiven on scene. 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 Review reviewed red flags. Patient education provide provided. IV_(FLUIDS_AND/OR_MEDICATION), MEDICATION_IM, ORAL_MEDICATION, EKG, WOUND_CARE, ORTHOSTATIC_VITAL_SIGNS Written by Medical [facility] on 2025-04-23
--- OUTSIDE RECORDS SUMMARY | 2025-05-25 19:14 | XMS_ITS | Data Portability ---
Author Organization [employer] [facility], [facility] Address [address] [place] [address] Care Team Providers Care Ticket Taker Name Role Phone HIM CCA OTHER [facility] Primary Care Provi dany Assessment Encounter Date [...] of any new or worsening serious symptoms [email or web address] Not available 04/23/2025 13:54:02 Plan of Treatment Reminders Order Date Submit Date Provider Last Modified By Organization Details Last Modified Time Details Appointments None recorded. Lab None recorded. Referral None recorded. Procedures None recorded. Surgeries None recorded. Imaging None recorded. Medication Orders ketorolac 30 mg/mL injection solution 2024 025 rsullivan 89 [id number], [address], [place], [address], 13:47:33 Patient TargetsNo targets recorded. Patient InstructionsNo [...] Address Organization Details Last Updated DateTime 5 414637. 84 g 98.7 [degF] 16 /min 98 [...] ICD10 Code Diagnosis IMO Codes Diagnosis Note [id number] Clint Choi MD [facility] ED Medical [address] [address] 04/23/2025 13:45:54 04/23/2025 21:07:09 Chronic low back pain 292677097 M54.50 G89.29 [id number] Health Concerns Section Related Observation LastModified by Organization Detai ls LastModified Time None Recorded Concern Status LastModified by Organization Details LastModified Time None Recorded Advance Directives Directive None Recorded Payers Insurance Date Sequence Insurance Name Policy Number Policy Londono Covered Member ID Londono Member ID Guarantor Name 04/23/2025 1 [facility] - DOS ON OR AFTER 2022 - DUAL ELIGIBLE - LONG TERM OPTIONS AND ONE CARE (MEDICARE REPLACEMENT/ADV ANTAGE - HMO) Gianna Tomas [id number] Gianna Tomas Notes Date Note Type Note Provider Name and Address Organization Details Recorded Time 04/23/2025 text/html ROS as noted in the [facility] Nurse Triage Notes (Jeni Napoles): Reason [...] .................... .................... .................... .................... .................... .................... . Match Up Worker Note From Lazaro Monique: Inst[facility] visit for [...] on diuretic though discontinued. Consult consulted with [facility] who ordered 30 MG of Toradol IM given on scene. 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 Review reviewed red flags. Patient education provide provided. [facility] Medication Orders: ketorolac 30 mg/mL injection solution: Administered .................... .................... .................... .................... .................... .................... .................... . [facility] Consulted: Clint Choi .................... .................... .................... .................... .................... .................... .................... . Disposition: Fulfilled Clint Choi MD [address] [place] [address],[address], [place], [address], [employer] 04/23/2025 15:36:09 OBGyn Episode No OBEpisode recorded.
== END 2025-05-25 15:36 | disposition home or self-care (01) ==
LOC: HO.PMC 14:53
PROVIDERS: PCP Nurse Practitioner; Visit Provider Nurse Practitioner Family
DX: M47.817 Spondylosis without myelopathy or radiculopathy, lumbosacral region (principal); M54.9 Dorsalgia, unspecified; G89.29 Other chronic pain; M53.3 Sacrococcygeal disorders, not elsewhere classified; E66.01 Morbid (severe) obesity due to excess calories; Z68.43 Body mass index [BMI] 50.0-59.9, adult; M79.7 Fibromyalgia
CPT/HCPCS: 99204

== ENCOUNTER → 2025-05-25 15:45 | Outpatient (BNV) | payer OTHER, SELFPAY | PROVIDERS: PCP Nurse Practitioner; Visit Provider Radiology Diagnostic Radiology | DX: M47.817 Spondylosis without myelopathy or radiculopathy, lumbosacral region (principal); M46.1 Sacroiliitis, not elsewhere classified | CPT/HCPCS: 72110; 72202 ==